=== PATIENT | female | born 1980 | race Two or more races ===

== ENCOUNTER → 2024-06-18 | Emergency (ER) | payer OTHER ==
[2024-06-18 04:31] LABS: ANION GAP 14 mmol/L (8-16); BASOPHILS % (AUTO) 0.4 % (0.0-2.0); CALCIUM, TOTAL 8.5 mg/dL (8.8-10.5); CARBON DIOXIDE 21 mmol/L (22-29); CHLORIDE 106 mmol/L (98-107); CREATININE 0.69 mg/dL (0.60-1.30); EOSINOPHILS % (AUTO) 2.5 % (1.0-6.0); GLOMERULAR FILTR. RATE CALC > 60 mL/min (>60); GLUCOSE,RANDOM 125 mg/dL (70-110); HEMATOCRIT 42.6 % (36-46); HEMOGLOBIN 14.3 g/dL (12.0-16.0); LYMPHOCYTES # (AUTO) 2.3 K/uL (1.0-4.8); MEAN CORPUSCULAR HEMOGLOBIN 29.9 pg (26.0-34.0); MEAN CORPUSCULAR HGB CONC 33.6 G/dL (31.0-37.0); MEAN CORPUSCULAR VOLUME 89 fL (80-100); MONOCYTES # (AUTO) 0.4 K/uL (0.1-1.0); MONOCYTES % (AUTO) 5.7 % (2.0-9.0); NEUTROPHILS # (AUTO) 3.5 K/uL (1.8-7.7); NEUTROPHILS % (AUTO) 55.4 % (40.0-70.0); PLATELET COUNT (AUTO) 332 K/uL (150-450); POTASSIUM 3.3 mmol/L (3.5-5.1); RED BLOOD CELL COUNT(AUTO) 4.79 MIL/uL (4.00-5.20); RED CELL DISTRIBUTION WIDTH 12.8 % (11.5-14.5); SODIUM SERUM 141 mmol/L (136-145); UREA NITROGEN, BLOOD 13 mg/dL (7-18); WHITE BLOOD COUNT (AUTO) 6.3 K/uL (4.5-11.0)
[2024-06-18 04:41] LABS: ALCOHOL, BLOOD (SERUM) 218 mg/dL (0-10)
== END | disposition home or self-care (01) ==
LOC: EMS 03:28
DX: F10.129 Alcohol abuse with intoxication, unspecified (principal); E87.6 Hypokalemia; J45.909 Unspecified asthma, uncomplicated; Y90.6 Blood alcohol level of 120-199 mg/100 ml
CPT/HCPCS: 99283; 80048; 85025; 36415; G0480